=== PATIENT | male | born 1935 | race Caucasian/White ===

== ENCOUNTER → 2016-07-22 | Outpatient (CLI) | payer OTHER, MEDICARE ==
[~2016-07-22] MED LIST: ASPIR 8181 MG PO; B12INJ PO; BACTRIM DS TAB1 EACH; FLORASTOR250 MG PO; GLUCOTROL5 MG PO; HYDROCODONE-APA1 TA1 PO; VITAMIN D1000 UNI1 PO; ZESTRIL5 MG PO; ZOCOR40 MG PO
== END ==
LOC: MRI 09:10
DX: M25.512 Pain in left shoulder (principal)